=== PATIENT | female | born 1995 | race Caucasian/White ===

== ENCOUNTER 2018-11-21 08:34 | Day surgery (SDC) | payer BC ==
[2018-11-20 08:32] VITALS: BMI 30.2
[~2018-11-21 08:34] MED LIST: DEXAMETHASONE SOD PHOSPHATE 10 MG/ML 1 ML VIAL IV ONE; LACTATED RINGERS 1,000 ML IV SCH; LIDOCAINE 1% 20 ML VIAL (10MG/ML) FOR IV START INTRADERMA PRN; SCOPOLAMINE 1.5MG/72HR PATCH TRANSDERM ONE
[2018-11-21 08:58] VITALS: TEMP 97.9
[2018-11-21] MEDS ORDERED: PROPOFOL 10 MG/ML 20 ML VIAL IV ONE (09:09)
[2018-11-21] MEDS ORDERED: LIDOCAINE 1% INJ 10MG/ML (20 ML MDV) ONE (09:09)
--- NOTE | 2018-11-21 09:27 | P.GSHP ---
History of Present Illness H&P Date: 11/21/18 Chief Complaint: GERD This is a 19-year-old female who presents today for EGD. She's had history of GERD for 5 or 6 years. Past Medical History Past Medical History: GERD/Reflux Additional Past Medical History / Comment(s): worsening heartburn History of Any Multi-Drug Resistant Organisms: None Reported Additional Past Surgical History / Comment(s): surgery for plugged tear duct, oral surgery Past Anesthesia/Blood Transfusion Reactions: Motion Sickness Smoking Status: Never smoker - Past Family History Mother Family Medical History: No Reported History Medications and Allergies Home Medications Medication Instructions Recorded Confirmed Type Control Pill 1 tab PO HS 06/02/18 11/21/18 History Sertraline [Zoloft] 100 mg PO HS 11/20/18 11/21/18 History Allergies Allergy/AdvReac Type Severity Reaction Status Date / Time amoxicillin Allergy Rash/Hives Verified 11/21/18 08:58 Penicillins Allergy Rash/Hives Verified 11/21/18 08:58 Surgical - Exam Vital Signs Temp Pulse Resp BP Pulse Ox 97.9 F 89 16 122/77 100 11/21/18 08:57 11/21/18 08:57 11/21/18 08:57 11/21/18 08:57 11/21/18 08:57 - General well developed, well nourished, no distress - Eyes PERRL - ENT normal pinna - Neck no masses - Respiratory normal expansion - Cardiovascular Rhythm: regular - Abdomen Abdomen: soft, non tender Assessment and Plan Assessment: GERD. We'll perform EGD.
--- NOTE | 2018-11-21 09:36 | P.OP ---
Description of Procedure: Date of Procedure: 11/21/18 Preoperative Diagnosis: GERD Postoperative Diagnosis: Mild antral gastritis Mild esophagitis Procedure(s) Performed: EGD Anesthesia: MAC Surgeon: Krishna Mills Pathology: other (Antrum, esophagus) Condition: stable Disposition: PACU Description of Procedure: The patient's placed on the endoscopy table in the lateral position. She received IV sedation. The gastric was placed oropharynx passed in the esophagus and into the stomach. Scope was placed through the pylorus. The first and second portion of the duodenum appeared normal. Scope summer back the antrum and this appeared mildly inflamed. A biopsies was performed. The scope was then retroflexed and the remainder of the stomach appeared normal. There was no significant hiatal hernia. The GE junction was at 40 cm. The distal esophagus appeared mildly inflamed a biopsies performed. The proximal esophagus appeared normal. Scope was withdrawn for patient.
[2018-11-21 09:57] VITALS: BP 108/74; PULSE 74; RESP 16
== END 2018-11-21 10:20 | disposition home or self-care (01) ==
LOC: ORWHC2ENDO 08:34
PROVIDERS: ATTEND Surgery
DX: K21.0 Gastro-esophageal reflux disease with esophagitis (principal); K29.50 Unspecified chronic gastritis without bleeding; F41.9 Anxiety disorder, unspecified; Z79.3 Long term (current) use of hormonal contraceptives; Z79.899 Other long term (current) drug therapy; Z88.0 Allergy status to penicillin; Z98.890 Other specified postprocedural states
CPT/HCPCS: 81025; 88305; 43239; J2001; J2704

== ENCOUNTER 2019-01-09 08:55 | Inpatient (IN) | payer BC ==
[~2019-01-09 08:55] MED LIST changes: +HEPARIN SODIUM,PORCINE 5,000 UNIT/ML 1 ML VIAL SQ ONE; -LACTATED RINGERS 1,000 ML IV SCH; -LIDOCAINE 1% 20 ML VIAL (10MG/ML) FOR IV START INTRADERMA PRN; +MIDAZOLAM 2 MG/2 ML VIAL IV PRN; +ONDANSETRON 4 MG/2 ML VIAL IVP ONE
[2019-01-09] MEDS ORDERED: LIDOCAINE 1% 20 ML VIAL (10MG/ML) FOR IV START INTRADERMA ONE (10:55)
[2019-01-09] MEDS: LACTATED RINGERS 1,000 ML IV SCH ×2 (10:55→12:46)
--- NOTE | 2019-01-09 12:35 | P.GSHP ---
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 Patient has had long-standing GERD.The patient has had long-standing problems with reflux esophagitis. The patient underwent recent EGD is found have evidence of esophagitis. Patient has been well informed on the procedure of laparoscopic Sheron fundoplication. The patient is aware the risk of the conversion to the open procedure, risk of injury to the stomach, liver and spleen. The patient is also a risk of recurrent GERD and dysphagia symptoms. The patient understands there is a postoperative diet of full liquids for 2 weeks after surgery. Past Medical History Past Medical History: GERD/Reflux Additional Past Medical History / Comment(s): worsening heartburn History of Any Multi-Drug Resistant Organisms: None Reported Additional Past Surgical History / Comment(s): surgery for plugged tear duct, oral surgery Past Anesthesia/Blood Transfusion Reactions: Motion Sickness Smoking Status: Never smoker - Past Family History Mother Family Medical History: No Reported History Medications and Allergies Home Medications Medication Instructions Recorded Confirmed Type Control Pill 1 tab PO HS 06/02/18 01/09/19 History Sertraline [Zoloft] 100 mg PO HS 11/20/18 01/09/19 History Omeprazole (Unk.Dose) 1 tab PO HS 01/08/19 History Allergies Allergy/AdvReac Type Severity Reaction Status Date / Time amoxicillin Allergy Rash/Hives Verified 01/08/19 09:40 Penicillins Allergy Rash/Hives Verified 01/08/19 09:40 Surgical - Exam Vital Signs Temp Pulse Resp BP Pulse Ox 98.0 F 82 16 125/68 96 01/09/19 10:45 01/09/19 10:45 01/09/19 10:45 01/09/19 10:45 01/09/19 10:45 - General well developed, well nourished, no distress - Eyes PERRL - ENT normal pinna - Neck no masses - Respiratory normal expansion - Cardiovascular Rhythm: regular - Abdomen Abdomen: soft, non tender Assessment and Plan Assessment: GERD. We'll perform laparoscopic Sheron fundal plication.
[2019-01-09] MEDS ORDERED: ROCURONIUM BROMIDE 10 MG/ML 10 ML VIAL IV ONE (12:44)
[2019-01-09] MEDS ORDERED: SUCCINYLCHOLINE CHLORIDE 100 MG/5 ML SYR IV ONE (12:44)
[2019-01-09] MEDS ORDERED: LIDOCAINE 1% INJ 10MG/ML (20 ML MDV) ONE (12:44)
[2019-01-09] MEDS ORDERED: fentaNYL (PF) 50 MCG/ML 2 ML AMP ONE (12:44)
[2019-01-09] MEDS ORDERED: HYDROmorphone (PF) 1 MG/ML ONE (12:44)
[2019-01-09] MEDS ORDERED: MIDAZOLAM 2 MG/2 ML VIAL ONE (12:44)
[2019-01-09] MEDS ORDERED: KETOROLAC 30 MG/ML 1 ML VIAL ONE (12:44)
[2019-01-09] MEDS ORDERED: PROPOFOL 10 MG/ML 20 ML VIAL IV ONE (12:44)
[2019-01-09] MEDS ORDERED: NEOSTIGMINE 1 MG/ML 10 ML VIAL ONE (12:44)
[2019-01-09] MEDS ORDERED: GLYCOPYRROLATE 0.2 MG/ML 2 ML VIAL ONE (12:44)
[2019-01-09] MEDS ORDERED: LACTATED RINGERS 1,000 ML IV ONE ×2 (13:22)
[2019-01-09] MEDS ORDERED: BUPIVACAINE (PF) 0.5% 30 ML VIAL SQ ONE (13:30)
[2019-01-09] MEDS: HYDROmorphone 0.5 MG/0.5 ML SYRINGE IVP PRN ×2 (14:08→14:15)
--- NOTE | 2019-01-09 14:18 | P.OP ---
Date of Procedure: 01/09/19 Preoperative Diagnosis: GERD Postoperative Diagnosis: GERD Procedure(s) Performed: Laparoscopic Sheron fundoplication Anesthesia: MOHAN Surgeon: Kirshna Mills Estimated Blood Loss (ml): 5 Pathology: none sent Condition: stable Disposition: PACU Description of Procedure: HThe patient was placed on the operating table in the supine position. The patient received general anesthesia. And was placed in dorsal lithotomy position. The patient was prepped and draped in the usual sterile fashion. The skin incision sites were anesthetized with 1% local Xylocaine. The skin was incised in the left periumbilical area and then using a blade less 5 mm trocar under direct visualization panel cavity was entered. After adequate insufflation the laparoscope was then placed into the peritoneal cavity. Next a 5 mm trochars placed in the right epigastric position. Another 5 millimeter trocar the right lateral position. Another 5 millimeter trocar in the left lateral position a 5 mm trocar is placed in the left epigastric position. And then the initial 5 mm trocar was exchanged for a 10 mm trocar. The left lateral lobe liver was retracted. The hernia was seen. The crural defect was then dissected using the Harmonic scissors device. A 360 crural dissection was performed the esophagus stomach was reduced back into the peritoneal Cavity. The crural defect was then closed using 2-0 Ethibond suture. Next the fundus of the stomach was mobilized using the [place] scissors device. and then a 58- [place] bougie dilator was placed oropharynx passed into the esophagus and stomach the fundal plication wrap was then performed by grasping the fundus posteriorly and bringing it around the esophagus and stomach fundoplication was then performed using 2-0 Ethibond suture. Care was taken that the fundal location rested over top of the intra-abdominal esophagus. There was no injury seen to the stomach or esophagus. The dilator was then withdrawn. The abdomen was irrigated there is no bleeding seen. The trochars were then withdrawn and then skin incision sites were closed using 3-0 Monocryl suture Steri-Strips are applied. Patient thought procedure well and sent to recovery room in stable condition.
[2019-01-09] MEDS ORDERED: HYDROmorphone 1 MG/ML 1 ML SYRINGE IVP PRN (14:19)
[2019-01-09] MEDS: METOCLOPRAMIDE 5 MG/ML 2 ML VIAL IVP SCH (19:07)
[2019-01-09] MEDS ORDERED: IBUPROFEN 600 MG TAB PO STA (19:08)
[2019-01-09] MEDS: D5-0.45% NACL WITH KCL 20MEQ/L 1,000 ML IV SCH (19:19)
[2019-01-09 19:31] VITALS: RESP 16
[2019-01-10] MEDS: METOCLOPRAMIDE 5 MG/ML 2 ML VIAL IVP SCH ×3 (00:46→11:51)
[2019-01-10] MEDS: D5-0.45% NACL WITH KCL 20MEQ/L 1,000 ML IV SCH ×2 (01:56→11:21)
[2019-01-10] MEDS ORDERED: ACETAMINOPHEN TAB 325 MG TAB PO PRN (08:22)
--- NOTE | 2019-01-10 08:29 | FL ---
EXAMINATION TYPE: FL esophagus cervic/pharynx DATE OF EXAM ORDERED: 01/10/2019 8:21 AM HISTORY: Kirit fundoplication. COMPARISON: None. FINDINGS: Esophagus distended normally with contrast. There was prompt egress of contrast from the e sophagus into the stomach. There is no evidence of extravasation. There is a scant amount of free air . The ligament of Treitz is in the normal location. IMPRESSION: STATUS POST KIRIT FUNDOPLICATION.
[2019-01-10] MEDS ORDERED: ENOXAPARIN 40 MG/0.4 ML SYRINGE SQ SCH (09:00)
[2019-01-10 09:25] VITALS: PULSE 85; TEMP 98.4
[2019-01-10 12:37] VITALS: BP 113/74
[2019-01-10 13:47] VITALS: BMI 31.4
--- NOTE | 2019-01-10 14:15 | P.DS ---
Providers Date of admission: 01/09/19 10:24 Expected date of discharge: 01/10/19 Attending physician: Krishna Mills Primary care physician: Araceli Melton - Discharge Diagnosis(es) (1) Gastroesophageal reflux disease Current Visit: Yes Status: Acute Hospital Course: Patient is status post Sheron fundoplasty. She is doing well. She is tolerating diet. Esophagram is negative. Patient cleared for discharge. Weight lifting instructions reviewed including postop Sheron diet consultation with dietitian performed Plan - Discharge Summary Discharge Rx Participant: No New Discharge Prescriptions: New Docusate [Colace] 100 mg PO BID #20 capsule HYDROcodone/APAP 5-325MG [Nova 5-325] 1 tab PO Q6HR PRN #10 tab PRN Reason: Pain No Action Control Pill 1 tab PO HS Sertraline [Zoloft] 100 mg PO HS Omeprazole (Unk.Dose) 1 tab PO HS Discharge Medication List Control Pill 1 tab PO HS 06/02/18 [History] Sertraline [Zoloft] 100 mg PO HS 11/20/18 [History] Omeprazole (Unk.Dose) 1 tab PO HS 01/08/19 [History] Docusate [Colace] 100 mg PO BID #20 capsule 01/09/19 [Rx] HYDROcodone/APAP 5-325MG [Nova 5-325] 1 tab PO Q6HR PRN #10 tab 01/09/19 [Rx] Follow up Appointment(s)/Referral(s): Krishna Mills MD [STAFF PHYSICIAN] - 1 Week
== END 2019-01-10 14:37 | disposition home or self-care (01) | DRG 328 ==
LOC: 2ORMAIN 10:24 → 6PED 14:04
PROVIDERS: ADMIT Surgery; ATTEND Surgery
PROC: 0DV44ZZ Restriction of Esophagogastric Junction, Percutaneous Endoscopic Approach (ICD-10-PCS; principal; 2019-01-09 11:15)
DX: K21.0 Gastro-esophageal reflux disease with esophagitis (principal); K44.9 Diaphragmatic hernia without obstruction or gangrene; F41.9 Anxiety disorder, unspecified; F32.9 Major depressive disorder, single episode, unspecified; Z88.0 Allergy status to penicillin; Z79.899 Other long term (current) drug therapy; Z98.890 Other specified postprocedural states
CPT/HCPCS: 74210; 81025